=== PATIENT | female | born 1975 | race African-American/Black ===

== ENCOUNTER 2018-06-11 09:24 | Emergency (ER) | payer OTHER ==
[~2018-06-11] VITALS: Ht 162.6 cm; Wt 129.3 kg
[2018-06-11] MEDS ORDERED: COZAAR 25 MG TA25 M1 PO (09:35)
[2018-06-11] MEDS ORDERED: METFORMIN HCL500 MG PO (09:35)
[2018-06-11] MEDS ORDERED: PREDNISONE 20 M20 MG PO (12:17)
[2018-06-11 12:35] VITALS: BP 149/91
== END 2018-06-11 12:38 | disposition home or self-care (01) ==
LOC: ER 09:24
DX: T78.49XA Other allergy, initial encounter (principal); L50.9 Urticaria, unspecified; I10 Essential (primary) hypertension; E11.9 Type 2 diabetes mellitus without complications; Z88.0 Allergy status to penicillin; X58.XXXA Exposure to other specified factors, initial encounter

== ENCOUNTER 2019-08-17 13:22 | Emergency (ER) | payer BC, OTHER ==
[~2019-08-17] VITALS: Ht 162.6 cm; Wt 122.5 kg
--- NOTE | ~2019-08-17 | EKG ---
[facility] [address] [place] [address] ELECTROCARDIOGRAM REPORT Name: JIAN FLORES Room #: PRE [facility]..#: [id number] Admission: Attend Phys: Discharge: Date of : 77 Report #: [id number] THIS REPORT FOR: cc: Greyson Rubi MD ~ THIS REPORT FOR: //name// [facility] ED Test Date: 2019-08-17 Test Time: 13:41:53 Pat Name: JIAN FLORES Department: Room: Gender: F Jewelry Sales Representative: terri : 1975 Requested By: Srinivas Karimi Order Number: [id number] MD: Measurements Intervals [place] Rate: 86 P: 47 CT: 151 QRS: 36 QRSD: 78 T: -1 QT: 355 QTc: 425 Interpretive Statements Sinus rhythm Borderline T abnormalities, inferior leads No previous ECG available for comparison [email or web address] By: 1341 1341 Greyson Rubi MD /EPI
[~2019-08-17 13:22] MED LIST: COZAAR 25 MG TA25 M1 PO; HYDROCHLOROTHIA25 M2 PO; HYDROCODONE-AP1 EAC6 PO; METFORMIN HCL500 MG PO; PREDNISONE 20 M20 MG PO
[2019-08-17] MEDS ORDERED: OZEMPIC1 MG/0.75 SUBQ (14:49)
[2019-08-17 16:13] LABS: ABSOLUTE NEUTROPHILS 6.3 thou/uL (1.4-8.2); BASOPHILS 0.9 % (0.0-2.0); EOSINOPHILS 1.4 % (0.0-3.0); HEMATOCRIT 37.2 % (37.0-47.0); HEMOGLOBIN 11.8 gm/dL (12.0-15.0); LYMPHOCYTES 22.2 % (24.0-44.0); MCH 24.9 pg (26.0-34.0); MCHC 31.7 g/dL (28.0-37.0); MCV 78.5 fL (80.0-100.0); MONOCYTES 5.3 % (1.0-8.0); PLATELET COUNT 355 thou/uL (150-400); POLYS 70.2 % (36.0-66.0); RBC 4.74 mil/uL (4.20-5.00); RDW 16.5 % (10.5-14.5); WBC 8.9 thou/uL (4.0-11.0)
[2019-08-17 16:26] LABS: ANION GAP 7 mmol/L (7-16); BUN 9 mg/dL (7-18); CHLORIDE 102 mmol/L (98-107); CO2 27 mmol/L (21-32); CREATININE 0.8 mg/dL (0.6-1.0); GLUCOSE 109 mg/dL (74-106); POTASSIUM 3.6 mmol/L (3.5-5.1); SODIUM 136 mmol/L (136-145)
[2019-08-17 16:39] LABS: ALBUMIN 3.5 g/dL (3.4-5.0); SGOT 14 U/L (15-37); SGPT 22 U/L (30-65); TOTAL BILIRUBIN 0.2 mg/dL (<0.1-1.0); TOTAL PROTEIN 8.3 g/dL (6.4-8.2); TROPONIN-I <0.06 ng/mL (<0.06)
[2019-08-17] MEDS ORDERED: NORVASC5 MG PO (18:16)
[2019-08-17 18:24] VITALS: BP 162/92
== END 2019-08-17 18:27 | disposition home or self-care (01) ==
LOC: ER 13:22
PROVIDERS: Nurse Practitioner Family
DX: I16.0 Hypertensive urgency (principal); R42 Dizziness and giddiness; E11.9 Type 2 diabetes mellitus without complications; I10 Essential (primary) hypertension; F41.9 Anxiety disorder, unspecified; Z98.890 Other specified postprocedural states; Z88.1 Allergy status to other antibiotic agents; Z88.0 Allergy status to penicillin